=== PATIENT | male | born 1995 | race Caucasian/White ===

== ENCOUNTER 2017-04-19 07:12 | Day surgery (SDC) | payer OTHER ==
[2017-04-19] MEDS ORDERED: LIDOCAINE 1% MDV 20ML VIAL SQ (07:45)
[2017-04-19 08:07] LABS: HEMATOCRIT 47.9 % (42.0-52.0); HEMOGLOBIN 16.2 g/dl (14.0-18.0); MEAN CORPUSCULAR HEMOGLOBIN 29.2 pg (27.0-33.0); MEAN CORPUSCULAR HGB CONC 33.8 g/dl (32.0-36.5); MEAN CORPUSCULAR VOLUME 86.5 fl (80.0-96.0); PLATELET COUNT, AUTOMATED 268 10^3/uL (150-450); RED BLOOD COUNT 5.54 10^6/uL (4.30-6.10); RED CELL DISTRIBUTION WIDTH 12.7 % (11.5-14.5); WHITE BLOOD COUNT 7.1 10^3/uL (4.0-10.0)
[2017-04-19] MEDS: LR 1,000 ML IV (08:39)
[2017-04-19] MEDS: LIDOCAINE W/EPINEPHRINE 1% 20ML VIAL As Ordered (10:12)
[2017-04-19] MEDS ORDERED: ONDANSETRON 4MG/2ML VIAL (J2405) As Ordered (11:49)
[2017-04-19] MEDS ORDERED: PERCOCET 5MG/325MG TAB As Ordered (11:49)
[2017-04-19] MEDS: PERCOCET 5MG/325MG TAB PO ×2 (11:53→12:24)
[2017-04-19] MEDS: ONDANSETRON 4MG/2ML VIAL (J2405) IV (11:57)
[2017-04-19] MEDS ORDERED: LR 1,000 ML IV (12:00)
[2017-04-19] MEDS ORDERED: NORCO, ANEXSIA 5/325MG TABLET (HYDROcodone/ACETAMINOPHEN) PO (12:00)
[2017-04-19] MEDS ORDERED: fentaNYL 100 MCG/2 ML INJECTION (J3010) IV (12:00)
[2017-04-19] MEDS ORDERED: HYDROmorphone HCL 1 MG/ML SYRINGE (J1170) IV (12:00)
== END 2017-04-19 14:38 | disposition home or self-care (01) ==
LOC: M SDC 07:12
DX: K40.90 Unilateral inguinal hernia, without obstruction or gangrene, not specified as recurrent (principal)
CPT/HCPCS: 49650